=== PATIENT | male | born 1985 | race Native Hawaiian/Other Pacific Islander ===

== ENCOUNTER 2018-05-18 09:55 | Emergency (ER) | payer OTHER ==
[2018-05-18 09:58] VITALS: BMI 29.9
[2018-05-18 09:59] VITALS: BP 138/84; PULSE 90; RESP 17; TEMP 98; O2SAT 98
--- NOTE | 2018-05-18 10:55 | ED PDOC ---
Lower Extremity Pain/Injury Time Seen by Provider: 05/18/18 10:18 Chief Complaint (Nursing): Lower Extremity Problem/Injury Chief Complaint (Provider): right foot pain History Per: Patient History/Exam Limitations: no limitations Onset/Duration Of Symptoms: Days (x1 week) Current Symptoms Are (Timing): Still Present Additional Complaint(s): Puja Coffey is a 33 year old male, with no significant past medical history, who presents to the emergency department for evaluation of a sharp right foot pain onset for x1 week. Patient states pain began last Wednesday but improved throughout the rest of the week. However, last night he woke up with severe pain and states it worsens with bearing weight. He denies any fall or injuries. No further medical complaints. PMD: Clinic. Past Medical History Reviewed: Historical Data, Nursing Documentation, Vital Signs Vital Signs: Last Vital Signs Temp 98 F 05/18/18 09:58 Pulse 90 05/18/18 09:58 Resp 17 05/18/18 09:58 BP 138/84 05/18/18 09:58 Pulse Ox 98 05/18/18 09:58 - Medical History PMH: No Chronic Diseases - Surgical History Surgical History: Appendectomy - Family History Family History: States: Unknown Family Hx - Social History Current smoker - smoking cessation education provided: No Alcohol: Social Drugs: Denies - Home Medications Home Medications: Ambulatory Orders Medication Instructions Recorded Naproxen [Naprosyn] 500 mg PO BID PRN #20 tablet 05/18/18 Non-Formulary 0 ea AD ONCE #1 ea 05/18/18 - Allergies Allergies/Adverse Reactions: Allergies Allergy/AdvReac Type Severity Reaction Status Date / Time No Known Allergies Allergy Verified 05/18/18 10:29 Review of Systems ROS Statement: Except As Marked, All Systems Reviewed And Found Negative Musculoskeletal: Positive for: Foot Pain (right ) Physical Exam - Reviewed Nursing Documentation Reviewed: Yes Vital Signs Reviewed: Yes - Physical Exam Appears: Positive for: No Acute Distress Head Exam: Positive for: ATRAUMATIC, NORMAL INSPECTION, NORMOCEPHALIC Skin: Positive for: Normal Color, Warm, Dry Eye Exam: Positive for: Normal appearance Neck: Positive for: Painless ROM Extremity: Positive for: Normal ROM (lower extremities), Tenderness (Tenderness on the lateral aspect of right ankle more so radiating pain from pressure of plantar fascia but no redness, induration, deformity or ecchymosis). Negative for: Deformity, Swelling, Other (No tenderness on lateral or medial malleolus) Neurologic/Psych: Positive for: Alert, Oriented. Negative for: Motor/Sensory Deficits - ECG O2 Sat by Pulse Oximetry: 98 (RA) Pulse Ox Interpretation: Normal Medical Decision Making Medical Decision Making: Time: 10:18 Initial Impression: foot pain Initial Plan: --Ankle right 3 views routine [RAD] --Foot right 3 views routine [RAD] --Reevaluation 11:04 Foot x-ray FINDINGS: BONES: Normal. No fracture. JOINTS: Normal. SOFT TISSUES: Normal. OTHER FINDINGS: None. IMPRESSION: Normal right foot radiographs. 11:05 Ankle X-Ray FINDINGS: BONES: Normal. No fracture. JOINTS: Normal. No osteoarthritis. Ankle mortise maintained. Talar dome intact SOFT TISSUES: Normal. OTHER FINDINGS: None. IMPRESSION: Normal right ankle radiographs. ----- Scribe Attestation: Documented by Baron Carlin, acting as a scribe for Bri Sigala MD. Provider Scribe Attestation: All medical record entries made by the Scribe were at my direction and personally dictated by me. I have reviewed the chart and agree that the record accurately reflects my personal performance of the history, physical exam, medical decision making, and the department course for this patient. I have also personally directed, reviewed, and agree with the discharge instructions and disposition. 32a - seen by podiatry. posterior splint applied. followup with Dr. Buckner. MRI of foot. Motrin for pain. Disposition - Clinical Impression Clinical Impression: Foot injury - Patient ED Disposition Is Patient to be Admitted: No Doctor Will See Patient In The: Office Counseled Patient/Family Regarding: Diagnosis, Need For Followup, Rx Given - Disposition Referrals: Gopal Buckner DPM [Staff Provider] - [facility] [Outside] Disposition: Routine/Home Disposition Time: 11:30 Condition: STABLE Prescriptions: Naproxen [Naprosyn] 500 mg PO BID PRN #20 tablet PRN Reason: Pain, Moderate (4-7) Non-Formulary 0 ea AD ONCE #1 ea Instructions: Foot Sprain (DC), Metatarsalgia Forms: [facility] ([facility]) - POA Present On Arrival: None
--- NOTE | 2018-05-18 11:06 | RAD ---
Date of service: 05/18/2018 PROCEDURE: Right Foot Radiographs. HISTORY: pain COMPARISON: None. FINDINGS: BONES: Normal. No fracture. JOINTS: Normal. SOFT TISSUES: Normal. OTHER FINDINGS: None. IMPRESSION: Normal right foot radiographs.
--- NOTE | 2018-05-18 11:07 | RAD ---
Date of service: 05/18/2018 PROCEDURE: Right Ankle Radiographs. HISTORY: pain COMPARISON: None FINDINGS: BONES: Normal. No fracture. JOINTS: Normal. No osteoarthritis. Ankle mortise maintained. Talar dome intact SOFT TISSUES: Normal. OTHER FINDINGS: None. IMPRESSION: Normal right ankle radiographs.
--- NOTE | 2018-05-18 12:50 | CP.PCM.CON ---
History of Present Illness - History of Present Illness History of Present Illness: Podiatry consult note for Dr. Buckner, 33 yo male was seen in the ED along with his family member for pain in the right ankle. Patient denies any medical history. Claims pain had started a week ago and has progressively gotten worse. Pain had started out of nowhere after walking around in [facility]. Patient denies any trauma or ankle sprains that he can remember. Patient states the pain has been the worst in the last day and was unable to sleep throughout the night. Denies taking pain medications, denies icing or elevating. Denies any other pedal complains. Denies f/n/v/sob. PMhx: none Past surgical history: appendectomy (2007) Allergies: NKFDA Social history: denies smoking tobacco or using recreational drugs, occasional drinker. Past Patient History - Infectious Disease Hx of Infectious Diseases: None - Past Social History Alcohol: Social Drugs: Denies - PSYCHIATRIC Hx Substance Use: No - SURGICAL HISTORY Hx Appendectomy: Yes Meds Home Medications: Home Medication List Medication Instructions Recorded Confirmed Type Naproxen [Naprosyn] 500 mg PO BID PRN #20 tablet 05/18/18 Rx Non-Formulary 0 ea AD ONCE #1 ea 05/18/18 Rx Allergies/Adverse Reactions: Allergies Allergy/AdvReac Type Severity Reaction Status Date / Time No Known Allergies Allergy Verified 05/18/18 10:29 Physical Exam - Constitutional Appears: Well, Non-toxic, No Acute Distress - Head Exam Head Exam: ATRAUMATIC, NORMOCEPHALIC - Extremities Exam Additional comments: Right lower extremity exam: Vascular: DP/PT 2/4, CFT <3 secs x5 TG warm to warm from proximal leg to tip of toes, no edema noted, erythema noted in the foot or ankle Neuro: Protective sensation intact via ipswich 12/22 Derm: No open lesions, no abrasions, no edema or erythema noted, no clinical signs of infection Ortho: pain on palpation to the area of ATFL, pain with eversion and plantarflexion. No pain with dorsiflexion or inversion, no pain on palpation of the achilles, no pain at the base of the fifth metatarsal, no pain on the medial aspect of the ankle, MSk 5/5 with inversion and dorsiflexion. 3/5 with plantarflexion and eversion secondary to guarding. - Neurological Exam Neurological exam: Alert, Normal Gait, Oriented x3 - Psychiatric Exam Psychiatric exam: Normal Affect, Normal Mood - Skin Skin Exam: Normal Color Results - Vital Signs Recent Vital Signs: Last Vital Signs Temp 98 F 05/18/18 09:58 Pulse 90 05/18/18 09:58 Resp 17 05/18/18 09:58 BP 138/84 05/18/18 09:58 Pulse Ox 98 05/18/18 12:30 Assessment & Plan - Assessment and Plan (Free Text) Assessment: 33 yo male seen in the ED with no medical history with pain to the right ankle; possible ATFL tear. Plan: Patient seen and evaluated History and plan discussed in detail with the attending, Dr Buckner Patient educated on the etiology of the symptoms; possible ligamentous injury X-rays reviewed with the patient: no osseous deformities, no fractures noted; soft tissue swelling noted on the medial and lateral aspect of the ankle Patient right lower extremity dressed with paredes compression and posterior splint Crutches dispensed; patient crutch trained Surgical shoe dispensed Rx ibuprofen to be taken orally as directed MRI right lower extremity of the ankle ordered Patient to follow up with Dr Buckner within a week in his office Patient showed verbal understanding Patients question and concerns answered. Thank you for the consult
== END 2018-05-18 13:06 | disposition home or self-care (01) ==
LOC: SUPCPDRO 09:55 → H.ER 09:55
DX: S99.911A Unspecified injury of right ankle, initial encounter (principal); Y92.89 Other specified places as the place of occurrence of the external cause